=== PATIENT | female | born 1990 | race African-American/Black ===

== ENCOUNTER 2022-08-23 20:26 | Emergency (ER) | payer BC, OTHER ==
[2022-08-23 20:40] VITALS: BMI 30.2
[2022-08-23] MEDS ORDERED: DEXAMETHASONE SOD PHOSPHATE 10 MG/1 ML VIAL IVPUSH ONE (21:17)
[2022-08-23] MEDS ORDERED: ALBUTEROL SO4 2.5/IPRATROPIUM 0.5 INH SOL 3 ML VIAL.NEB. NEB ONE (21:23)
[2022-08-23] MEDS ORDERED: DEXAMETHASONE SOD PHOSPHATE 10 MG/1 ML VIAL ONE (21:23)
[2022-08-23] MEDS: ALBUTEROL SO4 2.5/IPRATROPIUM 0.5 INH SOL 3 ML VIAL.NEB. NEB SCH ×2 (21:30→21:35)
[2022-08-23 21:49] LABS: BASO % 1.1 % (0-2.0); EOS % 1.4 % (0-4.5); HEMATOCRIT 38.6 % (32.4-45.2); HEMOGLOBIN 12.8 GM/dL (10.7-15.3); LYMPH % 33.2 % (8-40); MCH 26.7 pg (25.7-33.7); MCHC 33.1 g/dl (32.0-36.0); MEAN CELL VOLUME 80.9 fl (80-96); MEAN PLT VOLUME 8.3 fl (7.5-11.1); MONO % 7.6 % (3.8-10.2); NEUT % 56.7 % (42.8-82.8); PLATELET COUNT 388 10^3/uL (134-434); RBC 4.78 M/mm3 (3.60-5.2)
[2022-08-23 22:22] LABS: ALBUMIN 3.5 g/dl (3.4-5.0); BLOOD UREA NITROGEN 12.2 mg/dL (7-18); CALCIUM 9.5 mg/dL (8.5-10.1)
[2022-08-23 22:26] LABS: CREATININE 0.7 mg/dL (0.55-1.3)
[2022-08-23 22:27] LABS: BILIRUBIN,TOTAL 0.4 mg/dL (0.2-1); TOT PROT 8.6 g/dl (6.4-8.2)
[2022-08-24 00:22] VITALS: BP 121/87; PULSE 90; RESP 15; TEMP 98.4
== END 2022-08-24 00:22 | disposition home or self-care (01) ==
LOC: JER 20:26
PROC: 3E0F7GC Introduction of Other Therapeutic Substance into Respiratory Tract, Via Natural or Artificial Opening (ICD-10-PCS; principal; 2022-08-23)
PROC: 3E033GC Introduction of Other Therapeutic Substance into Peripheral Vein, Percutaneous Approach (ICD-10-PCS; 2022-08-23)
DX: R05.1 Acute cough (principal); J02.9 Acute pharyngitis, unspecified
CPT/HCPCS: 36415; 70491-TC; 71046-TC-FY; 80053; 84703; 85025; 87070; 87651; 99285-25; J1100; Q9967